=== PATIENT | female | born 2000 ===

== ENCOUNTER 2023-07-17 11:39 | Day surgery (SDC) | payer OTHER ==
[2023-07-13 14:09] LABS: HEMATOCRIT 39.1 % (36.0-45.00); HEMOGLOBIN 13.1 g/dL (12.0-15.00); MEAN CELL VOLUME 92.6 fL (80.00-100.00); MEAN CORPUSCULAR HGB CONC 33.5 g/dl (32.0-36.0); PH,URINE 5.5 (5.0-8.0); PLATELET COUNT 345 K/uL (150-450); RED BLOOD COUNT 4.23 M/uL (4.00-6.00); RED CELL DISTRIBUTION WIDTH 15.4 % (11.5-14.5); URINE APPEARANCE Clear; URINE BILIRRUBIN Negative (NEGATIVE); URINE BLOOD Moderate; URINE COLOR Yellow; URINE GLUCOSE Negative (NEGATIVE); URINE LEUKOCYTE Trace; URINE NITRATE Negative; URINE PROTEIN Negative (NEGATIVE); URINE UROBILINOGEN 0.2 E.U./dl
[2023-07-13 14:13] LABS: URINE BACTERIA 4073.5 uL (0.0-1933); URINE EPITHELIAL CELLS 67.3 uL (0.0-38.8); URINE RBC 32.9 uL (0.0-20.8); URINE WBC 16.2 uL (0.0-23.2)
[2023-07-13 14:37] LABS: PARTIAL THROMBOPLASTIN TIME 30.8 SECONDS (22.0-34.0); PROTHROMBIN TIME 10.5 SECONDS (9.0-11.5)
[2023-07-13 14:46] LABS: ALBUMIN 4.3 gm/dL (3.4-5.0); BILIRUBIN TOTAL 1.32 mg/dL (0.3-1.2); CALCIUM 9.7 mg/dL (8.5-10.1); CREATININE SERUM 0.65 mg/dL (0.55-1.02); GFR 112.95; GLOBULINA 3.2 G/DL (2.4-3.5); POTASSIUM 3.9 mEq/L (3.5-5.1); TOTAL PROTEIN 7.5 gm/dL (6.4-8.2)
[2023-07-17] MEDS ORDERED: POVIDONE-IODINE 118 ML BOTT TOP ONE ×2 (16:50→19:00)
[2023-07-17] MEDS ORDERED: ONDANSETRON HCL 2 MG/ML VIAL ONE (19:24)
== END 2023-07-17 21:30 | disposition home or self-care (01) ==
LOC: CIR.AMB 11:39
PROVIDERS: ATTEND Specialist
DX: O02.1 Missed abortion (principal); O72.2 Delayed and secondary postpartum hemorrhage; Z88.2 Allergy status to sulfonamides; Z88.1 Allergy status to other antibiotic agents; Z20.822 Contact with and (suspected) exposure to COVID-19